=== PATIENT | female | born 1960 | race African-American/Black ===

== ENCOUNTER 2019-02-21 13:54 | Emergency (ER) | payer MEDICAID, OTHER ==
[~2019-02-21] VITALS: Ht 157.5 cm; Wt 50.0 kg
[2019-02-21 14:32] VITALS: BP 161/52
[2019-02-21] MEDS ORDERED: DIPHENHYDRAMINE 25MG CAPSULE PO ONE (18:00)
[2019-02-21] MEDS ORDERED: CYCLOBENZAPRINE 10MG TABLET PO ONE (18:00)
== END 2019-02-21 18:50 | disposition left against medical advice (07) ==
LOC: ER 13:54
DX: R21 Rash and other nonspecific skin eruption (principal); M79.604 Pain in right leg; M79.605 Pain in left leg; F17.290 Nicotine dependence, other tobacco product, uncomplicated; Z90.49 Acquired absence of other specified parts of digestive tract
CPT/HCPCS: 99283; Q0163

== ENCOUNTER 2022-05-20 14:55 | Emergency (ER) | payer MEDICAID, OTHER ==
[~2022-05-20] VITALS: Ht 162.6 cm; Wt 50.0 kg
[2022-05-20] MEDS ORDERED: ASPIRIN 325MG EC TABLET PO ONE (18:45)
[2022-05-20] MEDS ORDERED: ACETAMINOPHEN 325MG TABLET PO ONE (18:45)
[2022-05-20] MEDS ORDERED: ONDANSETRON 4MG ODT PO ONE (18:45)
[2022-05-20 20:20] LABS: CHLORIDE 102 mEq/L (98-107)
[2022-05-20] MEDS ORDERED: SODIUM CHLORIDE 0.9% 1,000 ML IV ONE (21:00)
[2022-05-20 21:05] LABS: BASOPHILS % 0.9 % (0.0-2.0); EOSINOPHILS % 1.3 % (0.0-5.0); HEMATOCRIT. 45.4 % (36.0-48.0); HEMOGLOBIN. 15.3 g/dL (12.0-16.0); MEAN CORPUSCULAR HEMOGLOBIN 30.2 pg (28.0-32.0); MEAN CORPUSCULAR VOLUME 89.8 fL (81.0-99.0); MONOCYTES % 6.9 % (2.0-8.0); NEUTROPHILS % 64.9 % (40.0-76.0); PLATELET 323 x1000/uL (130-400); RED BLOOD CELL COUNT 5.05 mill/uL (4.2-5.4); RED CELL DISTRIBUTION WIDTH 13.5 % (11.6-14.6)
[2022-05-20] MEDS ORDERED: HYDRALAZINE 20MG/ML VIAL IV ONE (21:45)
[2022-05-20] MEDS ORDERED: ONDANSETRON 4MG ODT PO NR (22:00)
[2022-05-20] MEDS ORDERED: ACETAMINOPHEN 325MG TABLET PO NR (22:00)
[2022-05-20] MEDS ORDERED: ASPIRIN 325MG EC TABLET PO NR (22:00)
[2022-05-20] MEDS ORDERED: CLONIDINE 0.1MG TABLET PO ONE (23:30)
[2022-05-20] MEDS ORDERED: MORPHINE SULFATE 4 MG/ML CPJ (NOT FOR IM USE) IV ONE (23:30)
[2022-05-20 23:46] LABS: CLARITY URINE CLEAR (CLEAR); COLOR URINE YELLOW (YELLOW); KETONES URINE 1+ (NEGATIVE); LEUKOCYTE ESTERASE URINE 1+ (NEGATIVE); NITRITE URINE NEGATIVE (NEGATIVE); OCCULT BLOOD URINE NEGATIVE (NEGATIVE); PH URINE 5.5 (4.5-8.0); PROTEIN URINE 1+ (NEGATIVE); SPECIFIC GRAVITY URINE 1.014 (1.005-1.030)
[2022-05-21 00:13] LABS: *AMPHETAMINES SCREEN URINE NEGATIVE (NEGATIVE); *BARBITURATES SCREEN URINE NEGATIVE (NEGATIVE); *BENZODIAZEPINES SCREEN URINE NEGATIVE (NEGATIVE); *COCAINE SCREEN URINE NEGATIVE (NEGATIVE); CANNABINOID URINE SCREEN NEGATIVE (NEGATIVE); METHADONE URINE SCREEN NEGATIVE (NEGATIVE); OPIATES URINE SCREEN NEGATIVE (NEGATIVE); PHENCYCLIDINE URINE SCREEN NEGATIVE (NEGATIVE)
[2022-05-21 01:13] VITALS: BP 162/65
[2022-05-21] MEDS ORDERED: HYDRALAZINE 20MG/ML VIAL IV ONE (01:15)
== END 2022-05-21 02:30 | disposition short-term general hospital (02) ==
LOC: ER 14:55
DX: I20.9 Angina pectoris, unspecified (principal); I16.9 Hypertensive crisis, unspecified; R10.11 Right upper quadrant pain; Z20.822 Contact with and (suspected) exposure to COVID-19
CPT/HCPCS: 36415; 71045; 76705; 80053; 80305; 81003; 83880; 84484; 85025; 87086; 87426; 93005; 96374; 96375; 99291; C9803; J0360; J2270; J7030; Q0162; Z7610

== ENCOUNTER 2022-06-15 17:08 | Emergency (ER) | payer OTHER ==
[~2022-06-15] VITALS: Ht 144.8 cm; Wt 55.0 kg
[2022-06-15] MEDS ORDERED: MECLIZINE 25MG TABLET PO ONE (18:00)
[2022-06-15] MEDS ORDERED: SODIUM CHLORIDE 0.9% 1,000 ML IV ONE (18:00)
[2022-06-15 18:56] LABS: BASOPHILS % 1.2 % (0.0-2.0); EOSINOPHILS % 2.8 % (0.0-5.0); HEMATOCRIT. 36.5 % (36.0-48.0); HEMOGLOBIN. 12.5 g/dL (12.0-16.0); LYMPHOCYTES % 25.2 % (20.0-50.0); MEAN CORPUSCULAR HEMOGLOBIN 30.9 pg (28.0-32.0); MEAN CORPUSCULAR VOLUME 90.2 fL (81.0-99.0); MEAN PLATELET VOLUME 7.4 fl (7.4-10.4); MONOCYTES % 8.8 % (2.0-8.0); PLATELET 336 x1000/uL (130-400); RED BLOOD CELL COUNT 4.05 mill/uL (4.2-5.4); RED CELL DISTRIBUTION WIDTH 13.5 % (11.6-14.6)
[2022-06-15 19:04] LABS: CHLORIDE 107 mEq/L (98-107)
[2022-06-15 19:12] LABS: PROTHROMBIN TIME 10.6 sec (9.6-11.0)
[2022-06-15 19:44] LABS: CLARITY URINE CLEAR (CLEAR); COLOR URINE YELLOW (YELLOW); KETONES URINE NEGATIVE (NEGATIVE); LEUKOCYTE ESTERASE URINE TRACE (NEGATIVE); NITRITE URINE NEGATIVE (NEGATIVE); OCCULT BLOOD URINE NEGATIVE (NEGATIVE); PROTEIN URINE NEGATIVE (NEGATIVE); SPECIFIC GRAVITY URINE 1.015 (1.005-1.030)
[2022-06-16 04:10] VITALS: BP 130/57
== END 2022-06-15 23:40 | disposition short-term general hospital (02) ==
LOC: ER 17:08 → UNDOADMIN 21:18 → MICUSO 21:18 → UNDODISIN 23:40
DX: R42 Dizziness and giddiness (principal); R53.1 Weakness; H53.8 Other visual disturbances; M19.90 Unspecified osteoarthritis, unspecified site; H55.09 Other forms of nystagmus; Z90.49 Acquired absence of other specified parts of digestive tract
CPT/HCPCS: 36415; 70450; 71045; 80053; 81003; 83880; 84484; 85025; 85610; 93005; 96360; 99285; J7030; J8597; Z7610; 87426

== ENCOUNTER 2022-07-23 19:06 | Emergency (ER) | payer MEDICAID, OTHER ==
[~2022-07-23] VITALS: Ht 165.1 cm; Wt 50.0 kg
[2022-07-23 21:28] LABS: BASOPHILS % 1.3 % (0.0-2.0); HEMATOCRIT. 23.7 % (36.0-48.0); HEMOGLOBIN. 8.1 g/dL (12.0-16.0); LYMPHOCYTES % 15.9 % (20.0-50.0); MEAN CORPUSCULAR HEMOGLOBIN 30.4 pg (28.0-32.0); MEAN CORPUSCULAR VOLUME 89.2 fL (81.0-99.0); MEAN PLATELET VOLUME 5.9 fl (7.4-10.4); MONOCYTES % 7.4 % (2.0-8.0); NEUTROPHILS % 72.4 % (40.0-76.0); PLATELET 610 x1000/uL (130-400); RED BLOOD CELL COUNT 2.66 mill/uL (4.2-5.4); RED CELL DISTRIBUTION WIDTH 15.1 % (11.6-14.6)
[2022-07-23 21:37] LABS: CHLORIDE 100 mEq/L (98-107)
[2022-07-23 21:46] LABS: ETHANOL BLOOD < 10 mg/dL
[2022-07-23 21:47] LABS: PROTHROMBIN TIME 10.9 sec (9.6-11.0)
[2022-07-23 22:57] LABS: CLARITY URINE CLEAR (CLEAR); COLOR URINE YELLOW (YELLOW); KETONES URINE NEGATIVE (NEGATIVE); LEUKOCYTE ESTERASE URINE NEGATIVE (NEGATIVE); NITRITE URINE NEGATIVE (NEGATIVE); OCCULT BLOOD URINE NEGATIVE (NEGATIVE); PH URINE 6.5 (4.5-8.0); PROTEIN URINE NEGATIVE (NEGATIVE); SPECIFIC GRAVITY URINE 1.075 (1.005-1.030)
[2022-07-23] MEDS ORDERED: MORPHINE SULFATE 2 MG/ML CPJ (NOT FOR IM USE) IV ONE (23:00)
[2022-07-23 23:13] LABS: *AMPHETAMINES SCREEN URINE NEGATIVE (NEGATIVE); *BARBITURATES SCREEN URINE NEGATIVE (NEGATIVE); *BENZODIAZEPINES SCREEN URINE NEGATIVE (NEGATIVE); *COCAINE SCREEN URINE NEGATIVE (NEGATIVE); CANNABINOID URINE SCREEN NEGATIVE (NEGATIVE); METHADONE URINE SCREEN NEGATIVE (NEGATIVE); OPIATES URINE SCREEN NEGATIVE (NEGATIVE); PHENCYCLIDINE URINE SCREEN NEGATIVE (NEGATIVE)
[2022-07-24 02:56] VITALS: BP 188/72
== END 2022-07-24 03:25 | disposition short-term general hospital (02) ==
LOC: ER 19:06
DX: M79.10 Myalgia, unspecified site (principal); I10 Essential (primary) hypertension; Z86.73 Personal history of transient ischemic attack (TIA), and cerebral infarction without residual deficits
CPT/HCPCS: 36415; 70450; 70496; 70498; 71045; 80053; 80305; 80320; 81003; 84484; 85025; 85610; 93005; 96374; 99285; J2270; G0480